=== PATIENT | female | born 1960 | race Hispanic/Latino ===

== ENCOUNTER 2018-04-30 09:15 | Inpatient (IN) | payer BC ==
--- NOTE | 2018-04-30 09:45 | ED PDOC ---
Arrival/HPI - General Chief Complaint: GI Problem Time Seen by Provider: 04/30/18 09:35 Historian: Patient - History of Present Illness Narrative History of Present Illness (Text): 04/30/18 09:47 57 year old female, whose past medical history includes hypertension, asthma, diverticulosis, and diverticultits, presents to the emergency department complaining of rectal bleeding this morning. Patient reports episodes of dark, diarrhea and has seen 4 episodes of rectal bleeding altogether. She states she had abdominal pain earlier that resolved with a bowel movement. She contacted Dr. Alexis earlier today who recommended coming to the emergency department for further evaluation. She denies fevers, chills, headache, dizziness, chest pain, shortness of breath, dyspnea on exertion, cough, nausea, vomiting, back pain, neck pain, or any other complaint. PMD: Dr. Dolan GI: Dr. Alexis Time/Duration: Prior to Arrival Symptom Onset: Gradual Symptom Course: Unchanged Activities at Onset: Light Context: Home Past Medical History - Provider Review Nursing Documentation Reviewed: Yes - Reproductive Menopause: Yes - Cardiac Hx Cardiac Disorders: Yes Hx Hypertension: Yes - Pulmonary Hx Respiratory Disorders: Yes Hx Asthma: Yes - Neurological Hx Neurological Disorder: No - HEENT Hx HEENT Disorder: No - Renal Hx Renal Disorder: No - Endocrine/Metabolic Hx Endocrine Disorders: No - Hematological/Oncological Hx Blood Disorders: No - Integumentary Hx Dermatological Disorder: No - Musculoskeletal/Rheumatological Hx Musculoskeletal Disorders: No - Gastrointestinal Hx Gastrointestinal Disorders: Yes Hx Diverticulitis: Yes - Genitourinary/Gynecological Hx Genitourinary Disorders: No - Psychiatric Hx Psychophysiologic Disorder: Yes Hx Anxiety: Yes Hx Panic Disorder: Yes Hx Substance Use: No - Surgical History Hx Section: Yes Other/Comment: OVARIAN - Anesthesia Hx Anesthesia: Yes Family/Social History - Physician Review Nursing Documentation Reviewed: Yes Family/Social History: No Known Family HX Smoking Status: Heavy Smoker > 10 Cigarettes Daily Hx Alcohol Use: Yes Frequency of alcohol use: Socially Hx Substance Use: No Allergies/Home Meds Allergies/Adverse Reactions: Allergies amoxicillin [From Augmentin] Allergy (Verified 04/30/18 09:27) VOMITING clavulanic acid [From Augmentin] Allergy (Verified 04/30/18 09:27) VOMITING Home Medications: Home Meds Medication Instructions Recorded Confirmed Unobtainable 04/30/18 04/30/18 Review of Systems - Physician Review All systems were reviewed & negative as marked: Yes - Review of Systems Constitutional: absent: Fevers Cardiovascular: absent: Chest Pain Physical Exam - Physical Exam Narrative Physical Exam (Text): 04/30/18 09:53 Constitutional: No acute distress. Head: Normocephalic. Atraumatic. Eyes: PERRL. ENT: Moist mucous membranes. Neck: Supple. Cardiovascular: Regular rate. Chest: No tenderness. Respiratory: Clear to auscultation bilaterally. GI: Soft. Nontender. Nondistended. Rectal: no hemorrhoids, no active bleeding, chaperoned by nurse. Back: No CVA tenderness. Musculoskeletal: No tenderness or swelling of extremities. Skin: No rash. Neurologic: Alert, no focal deficit. Vital Signs Reviewed: Yes Vital Signs Temp Pulse Resp BP Pulse Ox 04/30/18 09:27 98.8 F 84 17 114/80 96 Temperature: Afebrile Blood Pressure: Normal Pulse: Regular Respiratory Rate: Normal Appearance: Positive for: Well-Appearing, Non-Toxic, Comfortable Pain Distress: None Mental Status: Positive for: Alert and Oriented X 3 Medical Decision Making ED Course and Treatment: 04/30/18 09:54 Impression: 57 year old female who presents to the emergency department complaining of rectal bleeding. Plan: -- BBK -- Labs -- Reassess and disposition Prior Visits: Notes and results from previous visits were reviewed. Progress Notes: - Scribe Statement The provider has reviewed the documentation as recorded by the Daniel San Provider Scribe Attestation: All medical record entries made by the Daniel were at my direction and personally dictated by me. I have reviewed the chart and agree that the record accurately reflects my personal performance of the history, physical exam, medical decision making, and the department course for this patient. I have also personally directed, reviewed, and agree with the discharge instructions and disposition. Disposition/Present on Arrival - Present on Arrival Any Indicators Present on Arrival: No History of DVT/PE: No History of Uncontrolled Diabetes: No Urinary Catheter: No History of Decub. Ulcer: No History Surgical Site Infection Following: None - Disposition Have Diagnosis and Disposition been Completed?: Yes Diagnosis: GI bleed Disposition: HOSPITALIZED Disposition Time: 11:30 Patient Plan: Admission Condition: GOOD
[2018-04-30 10:31] LABS: BASO # 0.03 K/mm3 (0.0-2.0); BASO % 0.4 % (0.0-3.0); EOS % 0.4 % (1.5-5.0); HEMOGLOBIN 13.1 g/dL (12.0-16.0); LYMPH # 1.1 (1.2-3.4); LYMPH % 16.2 % (22.0-35.0); MEAN CELL VOLUME 94.5 fl (80.0-105.0); MEAN CORPUSCULAR HGB CONC 32.8 g/dl (31.0-37.0); MEAN PLATELET VOLUME 10.3 fl (7.0-11.0); MONO # 0.4 (0.1-0.6); MONO % 6.4 % (1.0-6.0); RBC 4.22 10^6/uL (3.5-6.1); RED CELL DISTRIBUTION WIDTH 12.8 % (11.5-14.5); WHITE BLOOD COUNT 6.9 10^3/uL (4.5-11.0)
[2018-04-30 10:41] LABS: ALB/GLOB RATIO 1.3 (1.1-1.8); ALBUMIN 4.2 g/dL (3.0-4.8); ALT/SGPT 77 U/L (7-56); AST/SGOT 58 U/L (14-36); BLOOD UREA NITROGEN 14 mg/dL (7-21); CALCIUM 9.5 mg/dL (8.4-10.5); GFR NON-AFRICAN AMERICAN > 60
--- NOTE | 2018-04-30 12:03 | CON ---
DATE OF CONSULTATION: 04/30/2018 GASTROENTEROLOGY CONSULTATION REQUESTING PHYSICIAN: Dr. Dolan. REASON FOR CONSULTATION: This is a 57-year-old female, well-known to me from the past, with a history of diverticulitis, asthma, hypertension, who called me this morning stating that she had three episodes of rectal bleeding. She denied any abdominal pain, nausea or vomiting. She had another episode of rectal bleeding in the emergency room. She denies any chest pain, shortness of breath, palpitations, fevers, or chills. The patient has been having intermittent left lower quadrant abdominal pain for the last several weeks. She was scheduled for an elective CT scan of the abdomen and pelvis later this week. PAST MEDICAL HISTORY: Notable for diverticulitis, hypertension, asthma, anxiety disorder, and panic disorder. PAST SURGICAL HISTORY: Notable for . SOCIAL HISTORY: She smokes between a half pack and a pack of cigarettes daily. She denies alcohol abuse. She denies drug use. FAMILY HISTORY: Noncontributory. REVIEW OF SYSTEMS: Fourteen-point review of systems is notable for rectal bleeding. ALLERGIES: INCLUDE AUGMENTIN, WHICH CAUSES VOMITING. PHYSICAL EXAMINATION: GENERAL: Well-developed female, lying in bed, in no acute distress. VITAL SIGNS: Revealed a temperature of 98.8, blood pressure 114/80, heart rate of 84. HEENT: Reveal sclerae to be white. Conjunctivae pink. NECK: Supple. CHEST: Lungs are clear. HEART: Exam reveals regular rate and rhythm. ABDOMEN: Soft, nontender. No mass. EXTREMITIES: Showed no edema. LABORATORY DATA: AST 58, ALT 77. CBC is pending. IMPRESSION: A 57-year-old female with known history of diverticulitis with several episodes of rectal bleeding. One must rule out a diverticular bleed. RECOMMENDATIONS: 1. Check serial hematocrits. 2. Check a nuclear bleeding scan. 3. I will prep the patient for colonoscopy for the morning. 4. Clear liquid diet as tolerated. Rafa Alexis MD
[2018-04-30 14:57] VITALS: BMI 27.4
[2018-04-30] MEDS ORDERED: Influenza Vaccine 60 mcg/0.5 mL SYR (4YR UP) IM ONE (14:57)
[2018-04-30] MEDS ORDERED: Pneumococcal 23-Valent Vaccine IM ONE (14:57)
[2018-04-30] MEDS ORDERED: Peg-Electrolyte Oral Soln 4L (Golytely) PO ONE (15:00)
--- NOTE | 2018-04-30 15:06 | NM ---
Date of service: 04/30/2018 PROCEDURE: Nuclear medicine gastrointestinal bleeding scan. HISTORY: rectal bleeding COMPARISON: None available. TECHNIQUE: 4ccof patient blood was withdrawn and mixed with 20.8mCi of technetium ultra tagged. Images of the abdomen and pelvis were obtained in the anterior projection at 1 min intervals over a period of 45 min. FINDINGS: No abnormal extravasation of tracer was observed throughout the exam to indicate active bleeding within or outside the gastrointestinal tract. Physiologic activity was seen in the heart, liver, spleen and blood vessels. Activity is seen in the bladder IMPRESSION: No evidence of active gastrointestinal bleeding.
[2018-04-30 19:23] LABS: HEMOGLOBIN 13.2 g/dL (12.0-16.0); MEAN CELL VOLUME 94.6 fl (80.0-105.0); MEAN CORPUSCULAR HGB CONC 32.8 g/dl (31.0-37.0); MEAN PLATELET VOLUME 9.9 fl (7.0-11.0); RBC 4.26 10^6/uL (3.5-6.1); RED CELL DISTRIBUTION WIDTH 12.7 % (11.5-14.5); WHITE BLOOD COUNT 5.5 10^3/uL (4.5-11.0)
--- NOTE | 2018-05-01 00:10 | HP ---
HISTORY OF PRESENT ILLNESS: The patient is a 57-year-old woman with a past medical history of diverticulosis who presented with a 1 day history of bright red blood per rectum. The patient states that she was in her usual state of health until the day of presentation when she developed 3 episodes of rectal bleeding. She describes the bleeding as bright red blood and denied any preceding fevers, chills, rigors, abdominal pain, nausea or vomiting. 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 While in the ED she had another episode of rectal bleeding but otherwise offers no complaints. Physical examination in the ED was unremarkable and laboratory studies demonstrated a stable hemoglobin of 13.1. She was subsequently admitted to the general medical [facility] for further evaluation. PAST MEDICAL HISTORY: As per HPI, also hypertension, anxiety disorder and COPD. PAST SURGICAL HISTORY: . ALLERGIES: NKDA. MEDICATIONS: Lisinopril 20 mg p.o. daily, Singulair 10 mg p.o. daily, Ventolin HFA 2 puffs q. 4-6 hours p.r.n. dyspnea or wheeze and Linzess 145 mcg p.o. daily. FAMILY HISTORY: Noncontributory. SOCIAL HISTORY: The patient reports an active 30-pack year smoking history. She denies alcohol use or illicit drug abuse. REVIEW OF SYSTEMS: A 12-point review of systems is negative except as per HPI. PHYSICAL EXAMINATION: VITAL SIGNS: Temperature 98.8, pulse 77, blood pressure 135/77, respiratory rate 18, and oxygen saturation 100% on room air. GENERAL: No apparent distress. HEENT: PERRL. EOMI. No scleral icterus. No conjunctival pallor. NECK: No JVD. No bruits. LUNGS: Clear to auscultation. CARDIOVASCULAR: Regular rate and rhythm. Normal S1 and S2. No murmurs, rubs or gallops. ABDOMEN: Normoactive bowel sounds, soft, nontender and nondistended. No rigidity. No tympany. EXTREMITIES: No edema. NEUROLOGIC: Awake, alert, and oriented x 3. No focal motor deficits. LABORATORY DATA: WBC 6.9, hemoglobin 13, hematocrit 40, and platelets 377. Sodium 141, potassium 4.5, chloride 106, bicarb 26, BUN 14, creatinine 0.7 and glucose 118. ASSESSMENT: The patient is a 57-year-old woman with a past medical history of diverticulosis who presented with a 1 day history of bright red blood per rectum. PLAN: 1. Lower GI bleed, rule out diverticular bleed. Input from Dr. Alexis noted and the patient has been scheduled for a bleeding scan. We will continue to monitor serial H/H and transfuse as needed. 2. Diverticulosis. Continue with care as per #1. 3. Hypertension. Blood pressure stable. Continue Lisinopril 20 mg p.o. daily. 4. COPD. Continue supplemental oxygen and bronchodilators as needed. 5. Anxiety disorder. 6. Prophylaxis. GI prophylaxis not indicated as the patient is eating. DVT prophylaxis not indicated as the patient is ambulatory. CODE STATUS: Full code. Diallo Dolan MD MTDD
[2018-05-01 07:05] LABS: MEAN CELL VOLUME 93.5 fl (80.0-105.0); MEAN CORPUSCULAR HEMOGLOBIN 30.7 pg (25.0-35.0); MEAN CORPUSCULAR HGB CONC 32.8 g/dl (31.0-37.0); MEAN PLATELET VOLUME 10.1 fl (7.0-11.0); RBC 3.36 10^6/uL (3.5-6.1); RED CELL DISTRIBUTION WIDTH 12.7 % (11.5-14.5); WHITE BLOOD COUNT 4.4 10^3/uL (4.5-11.0)
[2018-05-01 07:15] LABS: HEMOGLOBIN 10.3 g/dL (12.0-16.0)
[2018-05-01] MEDS ORDERED: Midazolam 2 MG/2 ML VIAL ONE (08:13)
[2018-05-01] MEDS ORDERED: Propofol 10 mg/ml Inj (20 ML) ONE ×3 (08:13→08:43)
[2018-05-01] MEDS ORDERED: Sodium Chloride 0.9% 1,000 ML IV SCH (09:00)
--- NOTE | 2018-05-01 11:42 | PN ---
SUBJECTIVE: The patient was seen and examined at bedside on the remote telemetry alvarez. No acute events overnight. She remains afebrile and hemodynamically stable. She is pending colonoscopy today with Dr. Alexis. OBJECTIVE: VITAL SIGNS: Temperature 98.1, pulse 77, blood pressure 137/84, respiratory rate 18 and oxygen saturation 98% on room air. GENERAL: No apparent distress. HEENT: PERRL, EOMI. No scleral icterus. No conjunctival pallor. NECK: No JVD. No bruits. LUNGS: Clear to auscultation. CARDIOVASCULAR: Regular rate and rhythm. Normal S1 and S2. No murmurs, rubs or gallops. ABDOMEN: Normoactive bowel sounds, soft, nontender and nondistended. No rigidity. No tympany. EXTREMITIES: No edema. NEUROLOGIC: Awake, alert and oriented x 3. No focal motor deficits. LABORATORY DATA: WBC 4.4, hemoglobin 10, hematocrit 31 and platelets 335. Chemistry pending. ASSESSMENT: The patient is a 57-year-old woman with a past medical history of diverticulosis who presented with a 1 day history of bright red blood per rectum. PLAN: 1. Lower GI bleed, rule out diverticular bleed. Input from Dr. Alexis noted and the patient is pending colonoscopy this morning. Continue to monitor serial CBC and transfuse as needed. 2. Diverticulosis. Continue with care as per #1. 3. Hypertension. Blood pressure stable. Continue Lisinopril 20 mg p.o. daily. 4. COPD. Continue supplemental oxygen and bronchodilators as needed. 5. Anxiety disorder. 6. Prophylaxis. GI prophylaxis is not indicated as the patient is eating. DVT prophylaxis is not indicated as the patient is ambulatory. CODE STATUS: Full code. Diallo Dolan MD MTDD
[2018-05-01 16:28] LABS: HEMOGLOBIN 9.8 g/dL (12.0-16.0); MEAN CELL VOLUME 94.1 fl (80.0-105.0); MEAN CORPUSCULAR HEMOGLOBIN 30.3 pg (25.0-35.0); MEAN CORPUSCULAR HGB CONC 32.2 g/dl (31.0-37.0); MEAN PLATELET VOLUME 9.8 fl (7.0-11.0); RBC 3.23 10^6/uL (3.5-6.1); RED CELL DISTRIBUTION WIDTH 12.6 % (11.5-14.5); WHITE BLOOD COUNT 4.9 10^3/uL (4.5-11.0)
[2018-05-01 19:11] VITALS: RESP 20
[2018-05-02 06:39] LABS: HEMOGLOBIN 9.3 g/dL (12.0-16.0); MEAN CELL VOLUME 94.5 fl (80.0-105.0); MEAN CORPUSCULAR HGB CONC 31.7 g/dl (31.0-37.0); RBC 3.1 10^6/uL (3.5-6.1); RED CELL DISTRIBUTION WIDTH 12.6 % (11.5-14.5); WHITE BLOOD COUNT 4.2 10^3/uL (4.5-11.0)
[2018-05-02 08:37] VITALS: BP 108/68; PULSE 68; TEMP 97.6; O2SAT 99
--- NOTE | 2018-05-02 10:04 | PN ---
DATE: 05/02/2018 SUBJECTIVE: The patient is sitting in a chair. She does not had any further rectal bleeding since her colonoscopy. She denies abdominal pain. OBJECTIVE: VITAL SIGNS: Reveal temperature of 97.6, blood pressure 108/68, heart rate 68. HEENT: Reveal sclerae to be white. Conjunctivae pink. NECK: Supple. CHEST: Lungs are clear. HEART: Reveals regular rate and rhythm. ABDOMEN: Soft, nontender. EXTREMITIES: Show no edema. LABORATORY DATA: Reveal hemoglobin 9.3, white blood cell count 4.2. IMPRESSION: A 57-year-old female with known diverticulosis with 1 day of lower gastrointestinal bleeding. Her blood count did drop from 13 on admission to 9.3 g. It has remained stable over the last 12 hours. I suspect that this is a diverticular bleed, although the exact site of bleeding was not identified. RECOMMENDATIONS: Advance to a soft, low-residue diet. The patient has no further bleeding. She can be discharged home with instructions to return if her lower GI bleeding returned. Case was discussed with the patient and Dr. Diallo Dolan. Rafa Alexis MD
--- NOTE | 2018-05-02 11:54 | PN ---
SUBJECTIVE: The patient was seen and examined at bedside on the general medical [facility]. No acute events overnight. She remains afebrile and hemodynamically stable. She is tolerating her liquid diet and has not had any bowel movements since yesterday. Overall she feels okay and offers no complaints. OBJECTIVE: VITAL SIGNS: Temperature 97.6, pulse 68, blood pressure 108/68, respiratory rate 20, oxygen saturation 99% on room air. GENERAL: No apparent distress. HEENT: PERRL, EOMI. No scleral icterus. No conjunctival pallor. NECK: No JVD, no bruits. LUNGS: Clear to auscultation. CARDIOVASCULAR: Regular rate and rhythm. Normal S1, S2. No murmurs. ABDOMEN: Normoactive bowel sounds, soft, nontender, nondistended. EXTREMITIES: No edema. NEUROLOGIC: Awake, alert and oriented x 3. No focal motor deficits. LABORATORY DATA: WBC 4.2, hemoglobin 9.3, hematocrit 29, platelets 313. PROCEDURES: 1. Colonoscopy demonstrated multiple large mouth diverticuli to the sigmoid and descending colon with red blood clots throughout the entire colon up to the terminal ileum with no site of bleeding identified. ASSESSMENT: The patient is a 57-year-old woman with a past medical history of diverticulosis who presented with a 1 day history of bright red blood per rectum. PLAN: 1. Lower GI bleed, likely secondary to diverticular bleed, resolved. Input from Dr. Alexis noted and colonoscopy reviewed. We will advance the patient's diet. If she is able to tolerate a soft diet she will be discharged home as per Dr. Alexis. The patient has been counseled on dietary restrictions and postprocedure instructions by Dr. Alexis. 2. Diverticulosis. Continue with care as per #1. 3. Hypertension. Continue Lisinopril 20 mg p.o. daily. 4. COPD. Continue supplemental oxygen and bronchodilators as needed. 5. Anxiety disorder. 6. Prophylaxis. GI prophylaxis not indicated as the patient is eating. DVT prophylaxis not indicated as the patient is ambulatory. CODE STATUS: Full code. Diallo Dolan MD [email or web address]
== END 2018-05-02 16:30 | disposition home or self-care (01) | DRG 379 ==
LOC: ED 09:15 → ERH 11:42 → 3RSO 13:53 → OBSVTOIN 05-02 08:40
PROVIDERS: ADMIT Internal Medicine; ATTEND Internal Medicine
PROC: 0DJD8ZZ Inspection of Lower Intestinal Tract, Via Natural or Artificial Opening Endoscopic (ICD-10-PCS; principal; 2018-05-01 10:15)
DX: K57.91 Diverticulosis of intestine, part unspecified, without perforation or abscess with bleeding (principal); F17.210 Nicotine dependence, cigarettes, uncomplicated; I10 Essential (primary) hypertension; F41.9 Anxiety disorder, unspecified; F41.0 Panic disorder [episodic paroxysmal anxiety]; J44.9 Chronic obstructive pulmonary disease, unspecified; Z98.891 History of uterine scar from previous surgery; Z88.1 Allergy status to other antibiotic agents